=== PATIENT | female | born 1955 | race African-American/Black ===

== ENCOUNTER → 2016-06-16 | Outpatient (CLI) | payer OTHER | END | disposition home or self-care (01) | LOC: LAB 11:02 | DX: E03.9 Hypothyroidism, unspecified (principal) | CPT/HCPCS: 36415; 84439; 84443; 84481 ==

== ENCOUNTER → 2019-11-05 | Outpatient (CLI) | payer OTHER ==
[2019-11-05 14:25] LABS: Basophils # (auto) 0 10 ^3/uL (0-0.2); Basophils % (auto) 0.8 % (0.0-2.0); Eosinophils # (auto) 0.1 10 ^3/uL (0-0.8); Eosinophils % (auto) 2.5 % (0.0-7.0); Hematocrit 38.1 % (36.0-46.0); Hemoglobin 12.1 g/dL (12.2-16.2); Lymphocytes # (auto) 1.9 10 ^3/uL (0.4-5.4); Mean Corpuscular Hemoglobin 29.6 pg (28.0-32.0); Mean Corpuscular Hgb Conc. 31.9 g/dL (32.0-36.0); Mean Corpuscular Volume 92.7 fL (80.0-100.0); Monocytes # (auto) 0.3 10 ^3/uL (0-1.3); Monocytes % (auto) 6.6 % (0.0-12.0); Neutrophils # (auto) 2.1 10 ^3/uL (1.6-8.6); Neutrophils % (auto) 48.1 % (37.0-80.0); Nucleated Red Blood Cells % 0.1 %; Platelet Count (auto) 271 10^3/uL (140-450); Red Blood Cells 4.11 10^6/uL (4.0-5.20); Red Cell Distribution Width 13.1 % (11.8-14.3); White Blood Cell 4.5 10^3/uL (4.4-10.8)
[2019-11-05 14:27] LABS: Urine Bacteria FEW /hpf (None Seen); Urine Blood Negative /uL (Negative); Urine Mucus FEW (None Seen); Urine Specific Gravity 1.025 (1.001-1.035); Urine WBC <1 /hpf (0 - 5)
[2019-11-05 14:49] LABS: Potassium 4.1 mmol/L (3.5-5.1)
[2019-11-05 14:58] LABS: Albumin 3.9 g/dL (3.4-5.0); BUN/Creatinine Ratio 9.8; Bilirubin, Total 0.5 mg/dL (0.2-1.0); Calcium 9.4 mg/dL (8.5-10.1); Total Protein 7.6 g/dL (6.4-8.2)
== END | disposition home or self-care (01) ==
LOC: LAB 13:25
PROVIDERS: ATTEND Nurse Practitioner
DX: E78.5 Hyperlipidemia, unspecified (principal); I10 Essential (primary) hypertension; E03.9 Hypothyroidism, unspecified
CPT/HCPCS: 36415; 80053; 80061; 81001; 84443; 85025

== ENCOUNTER 2024-04-25 16:32 | Inpatient (IN) | payer MEDICARE, OTHER ==
[~2024-04-25] VITALS: Ht 172.7 cm; Wt 98.5 kg
--- NOTE | 2024-04-25 17:31 | ED.PDOC ---
History of Present Illness HPI Comments 68 y/o F, Hx of HLD, thyroid disease, diverticulitis, obesity, hernia repiar, and hysterectomy, presents with c/o generalized abdominal pain, today. Patient is a poor historian secondary to pain and was only able to comment on sudden and unprovoked onset of pain 2x hours prior to ED arrival, today, after being fine the day prior. She rates pain a "20/10" in severity and it being non-radiating. She states suspicion on possible spoiled food consumption and reports no additional relevant or pertinent Hx, such as travel or injuries. She denies having any nausea, vomiting, diarrhea, constipation, urinary symptoms, fever, chills, or other associated symptoms or modifiers at this time. Chief Complaint: Abdominal Pain Time Seen by MD: 17:20 Reviewed Notes: Nurses Notes, Medications, Allergies Allergies: Coded Allergies: NO KNOWN ALLERGIES (Unverified , 04/25/24) Information Source: Patient Mode of Arrival: Ambulatory Severity: Moderate Timing: Hours Duration: Since onset Prehospital treatment: None Past Medical History PAST MEDICAL HISTORY: High Lipids, Thyroid Past Medical History (Other): diverticulitis, obesity Surgical History: Hernia Repair, Hysterectomy OCCUP THERAPIST History: Denies all OCCUP THERAPIST Hx Family History Family History: Unknown Social History Smoker: Non-Smoker Alcohol: Denies ETOH Use Drugs: Denies Drug Use Lives In: Home Constitutional: denies: chills, diaphoresis, fatigue, fever, malaise, sweats, weakness, others EENTM: denies: blurred vision, double vision, ear bleeding, ear discharge, ear drainage, ear pain, ear ringing, eye pain, eye redness, hearing loss, mouth pain, mouth swelling, nasal discharge, nose bleeding, nose congestion, nose pain, photophobia, tearing, throat pain, throat swelling, voice changes, others Respiratory: denies: cough, hemoptysis, orthopnea, SOB at rest, shortness of breath, SOB with excertion, stridor, wheezing, others Cardiovascular: denies: chest pain, dizzy spells, diaphoresis, Dyspnea on exertion, edema, irregular heart beat, left arm pain, lightheadedness, palpitations, PND, syncope, others Gastrointestinal: reports: abdominal pain; denies: abdomen distended, blood streaked bowels, constipated, diarrhea, dysphagia, difficulty swallowing, hematemesis, melena, nausea, poor appetite, poor fluid intake, rectal bleeding, rectal pain, vomiting, others Genitourinary: denies: abnormal vagina bleeding, burning, dyspareunia, dysuria, flank pain, frequency, hematuria, incontinence, pain, , vagina discharge, urgency, others Neurological: denies: dizziness, fainting, headache, left sided numbness, left sided weakness, numbness, paresthesia, pre-existing deficit, right sided numbness, right sided weakness, seizure, speech problems, tingling, tremors, weakness, others Musculoskeletal: denies: back pain, gout, joint pain, joint swelling, muscle pain, muscle stiffness, neck pain, others Integumetry: denies: bruises, change in color, change in hair/nails, dryness, laceration, lesions, lumps, rash, wounds, others Allergic/Immunocompromised: denies: Difficulty Healing, Frequent Infections, Hives, Itching, others Hematologic/Lymphatic: denies: anemia, blood clots, easy bleeding, easy bruising, swollen glands, others Endocrine: denies: excessive hunger, excessive sweating, excessive thirst, excessive urination, flushing, intolerance to cold, intolerance to heat, unexplained weight gain, unexplained weight loss, others Psychiatric: denies: anxiety, bipolar disorder, depression, hopeless, panic disorder, schizophrenia, sleepless, suicidal, others All Other Systems: Reviewed and Negative Physical Exam General Appearance: Moderate Distress HEENT: Normal ENT Inspection, Pharynx Normal, TMs Normal Neck: Full Range of Motion, Non-Tender, Normal, Normal Inspection Respiratory: Chest Non-Tender, Lungs Clear, No Accessory Muscle Use, No Respiratory Distress, Normal Breath Sounds Cardiovascular: No Edema, No JVD, No Murmur, No Gallop, Normal Peripheral Pulses, Regular Rate/Rhythm Breast Exam: Deferred Gastrointestinal: Diffuse, No Organomegaly, No Pulsatile Mass, Normal Bowel Sounds, Soft, Tenderness Genitalia: Deferred Pelvic: Deferred Rectal: Deferred Extremities: No calf tenderness, Normal capillary refill, Normal inspection, Normal range of motion, Non-tender, No pedal edema Musculoskeletal : Apperance: Normal Neurologic: Alert, optometric coordinator II-XII nml as Tested, No Motor Deficits, Normal Affect, Normal Mood, No Sensory Deficits Cerebellar Function: Normal Reflexes: Normal Skin: Dry, Normal Color, Warm Lymphatic: No Adenopathy Was a procedure done? Was a procedure done?: No Differential Dx Considerations may include: diverticulitis, spoiled food, gastritis, gastroenteritis, appendicitis, cholecystitis, cholelithiasis, nephrolithiasis, pyelonephritis, cystitis X-Ray, Labs, Meds, VS Vital Signs Date Time Temp Pulse Resp B/P (MAP) Pulse Ox O2 Delivery O2 Flow Rate FiO2 04/25/24 17:04 61 04/25/24 17:02 97.5 66 20 140/71 (94) 100 Lab Test 04/25/24 17:38 Range/Units White Blood Count 9.7 4.4-10.8 10^3/uL Red Blood Count 4.61 4.0-5.20 10^6/uL Hemoglobin 14.0 12.2-16.2 g/dL Hematocrit 42.5 36.0-46.0 % Mean Corpuscular Volume 92.2 80.0-100.0 fL Mean Corpuscular Hemoglobin 30.4 28.0-32.0 pg Mean Corpuscular Hemoglobin Concent 32.9 32.0-36.0 g/dL Red Cell Distribution Width 13.4 11.8-14.3 % Platelet Count 326 140-450 10^3/uL Mean Platelet Volume 9.3 6.9-10.8 fL Neutrophils (%) (Auto) 68.6 37.0-80.0 % Lymphocytes (%) (Auto) 26.6 10.0-50.0 % Monocytes (%) (Auto) 3.7 0.0-12.0 % Eosinophils (%) (Auto) 0.7 0.0-7.0 % Basophils (%) (Auto) 0.4 0.0-2.0 % Neutrophils # (Auto) 6.6 1.6-8.6 10 ^3/uL Lymphocytes # (Auto) 2.6 0.4-5.4 10 ^3/uL Monocytes # (Auto) 0.4 0-1.3 10 ^3/uL Eosinophils # (Auto) 0.1 0-0.8 10 ^3/uL Basophils # (Auto) 0 0-0.2 10 ^3/uL Nucleated Red Blood Cells 0.1 % Sodium Level 140 136-145 mmol/L Potassium Level 3.7 3.5-5.1 mmol/L Chloride Level 105 98-107 mmol/L Carbon Dioxide Level 26 20-31 mmol/L Anion Gap 9 5-15 Blood Urea Nitrogen 14 9-23 mg/dL Creatinine 1.03 H 0.550-1.02 mg/dL Glomerular Filtration Rate Calc 60 >90 mL/min BUN/Creatinine Ratio 13.6 10.0-20.0 Serum Glucose 136 H 74-106 mg/dL Calcium Level 11.4 H 8.7-10.4 mg/dL Total Bilirubin 1.7 H 0.2-1.0 mg/dL Aspartate Amino Transferase (AST) 325 H 13-40 U/L Alanine Aminotransferase (ALT) 191 H 7-40 U/L Alkaline Phosphatase 116 46-116 U/L Total Protein 7.8 5.7-8.2 g/dL Albumin 4.8 3.2-4.8 g/dL Lipase 91 H 12-53 U/L PROCEDURE(s): ABPL - CT AB PEL WO CON-NO ORAL OR IV IMPRESSION: Minimal wall edema of the ascending colon. Correlate for mild colitis. Sigmoid diverticulosis without diverticulitis. The patient's CBC is within normal limits The chemistry panel shows a creatinine of 1.03 The bilirubin is 1.7 and the liver enzymes are elevated The patient's lipase is also elevated at 91 The patient was being admitted at this time. The patient was diagnosis is acute colitis and intractable abdominal pain The patient understands and agrees with the management. The patient is being placed on morphine for the pain and Zofran for the nausea The patient was also given Protonix 40 mg IV push The patient was being admitted at this time. Images Reviewed?: Images reviewed and evaluated by me Time of 1ST Reevaluation: 17:50 Reevaluation 1ST: Unchanged Time of 2ND Reevaluation: 19:37 Reevaluation 2ND: Improved Patient Education/Counseling: Diagnosis, Treatment, Prognosis Family Education/Counseling: No Family Present Departure 1 Departure Time of Disposition: 19:37 Impression: Primary Impression: Intractable abdominal pain Additional Impressions: Acute colitis Elevated liver enzymes Disposition: ADMITTED INPATIENT Admit to: Med Surg Condition: Fair Critical Care Note Critical Care Time?: No Stability Stability form required: Yes Unstable for transfer: ED Physician Assesment (Clinical assesment) Heart Score Heart Score: Heart Score Response (Comments) Value History N/A 0 EKG N/A 0 Age N/A 0 Risk Factors N/A 0 Troponin N/A 0 Total 0 I personally scribed for EDILBERTO YOON MD ([email or web address]) on 04/25/24 at 17:31. Electronically submitted by Rey Salazar ([email or web address]). I personally scribed for EDILBERTO YOON MD ([email or web address]) on 04/25/24 at 18:53. Anastasiia ctronically submitted by Rey Salazar ([email or web address]). EDILBERTO YOON MD Apr 25, 2024 17:31
[2024-04-25 18:09] LABS: Basophils # (auto) 0 10 ^3/uL (0-0.2); Basophils % (auto) 0.4 % (0.0-2.0); Eosinophils # (auto) 0.1 10 ^3/uL (0-0.8); Eosinophils % (auto) 0.7 % (0.0-7.0); Hematocrit 42.5 % (36.0-46.0); Lymphocytes # (auto) 2.6 10 ^3/uL (0.4-5.4); Lymphocytes % (auto) 26.6 % (10.0-50.0); Mean Corpuscular Hemoglobin 30.4 pg (28.0-32.0); Mean Corpuscular Hgb Conc. 32.9 g/dL (32.0-36.0); Mean Corpuscular Volume 92.2 fL (80.0-100.0); Monocytes # (auto) 0.4 10 ^3/uL (0-1.3); Monocytes % (auto) 3.7 % (0.0-12.0); Neutrophils # (auto) 6.6 10 ^3/uL (1.6-8.6); Neutrophils % (auto) 68.6 % (37.0-80.0); Nucleated Red Blood Cells % 0.1 %; Platelet Count (auto) 326 10^3/uL (140-450); Red Blood Cells 4.61 10^6/uL (4.0-5.20); Red Cell Distribution Width 13.4 % (11.8-14.3); White Blood Cell 9.7 10^3/uL (4.4-10.8)
[2024-04-25 18:25] LABS: Albumin 4.8 g/dL (3.2-4.8); Anion Gap 9 (5-15); BUN/Creatinine Ratio 13.6 (10.0-20.0); Blood Urea Nitrogen 14 mg/dL (9-23); Carbon Dioxide 26 mmol/L (20-31); Chloride 105 mmol/L (98-107); Potassium 3.7 mmol/L (3.5-5.1); Sodium 140 mmol/L (136-145)
--- NOTE | 2024-04-25 18:25 | DVH ---
Exam: CT CT AB PEL WO CON-NO ORAL OR IV History: pain Comparison Study: 12/20/2023 report only TECHNIQUE: Multidetector CT of the abdomen and pelvis without contrast. Axial, coronal and sagittal m ultiplanar reformats were obtained from the axial data set by the technologist. Radiation Dose Information: CT Dose: CTDI volume is 15.05 mGy. Dose-length product is 784.99 mGy*cm FINDINGS: Bibasilar atelectasis. Partially visualized heart is unremarkable. Significant distention of the gallbladder which is otherwise unremarkable. Mild hepatomegaly with no focal hepatic lesions. The spleen, pancreas and adrenal glands unremarkable. Kidneys, ureters and urinary bladder unremarkable. Uterus is not definitely visualized. Question hyst erectomy /uterine atrophy. A pessary is noted in place. Significant distention of the stomach filled with ingested material. Small bowel loops unremarkable. Appendix is unremarkable. Mild wall edema of the ascending colon. Sigmoid diverticulosis without dive rticulitis. The remainder of the large bowel is unremarkable. No evidence of intraperitoneal free air. No evidence of aortic aneurysm. No significant lymphadenopathy. Small fat containing right inguinal hernia. The soft tissues are unremarkable. No Destructive osseous lesions are noted. IMPRESSION: Minimal wall edema of the ascending colon. Correlate for mild colitis. Sigmoid diverticulosis without diverticulitis.
[2024-04-25 18:26] LABS: Total Protein 7.8 g/dL (5.7-8.2)
[2024-04-25 18:51] LABS: Alanine Aminotransferase 191 U/L (7-40); Alkaline Phosphatase 116 U/L (46-116); Aspartate Aminotransferase 325 U/L (13-40); Bilirubin, Total 1.7 mg/dL (0.2-1.0); Calcium 11.4 mg/dL (8.7-10.4); Glucose 136 mg/dL (74-106); Lipase 91 U/L (12-53)
[2024-04-25 20:30] VITALS: PULSE 92; RESP 16; O2SAT 99
[2024-04-25 20:30] LABS: Urine Bacteria FEW /hpf (None Seen); Urine Blood Negative /uL (Negative); Urine Clarity Clear (Clear); Urine Color Yellow (Yellow); Urine Mucus FEW (None Seen); Urine Protein, UAD Negative (Negative); Urine Specific Gravity 1.019 (1.001-1.035); Urine Squamous Epithelial Cell FEW /hpf (<5); Urine Urobilinogen 2 mg/dL (Negative); Urine WBC 2 /hpf (0 - 5); Urine pH 5.5 (5.0-9.0)
[2024-04-25] MEDS: MORPHINE SULFATE 4 MG/ML SYR/VIAL IV ONE (21:08)
[2024-04-25] MEDS: ONDANSETRON HCL 4 MG/2 ML VIAL IV ONE (21:08)
[2024-04-25] MEDS: SODIUM CHLORIDE 0.9% 500 ML IVB ONE (21:08)
--- NOTE | 2024-04-25 21:59 | DVHHPRES ---
History of Present Illness Resident Creating Document: MITALI SHORE RESIDENT History of Present Illness This is a 68-year-old female with past medical history of hypothyroidism, hiatal hernia, degenerative disc disease, hyperlipidemia presented to the ED with a chief complaint of severe epigastric pain since 3:00 p.m. prior to this admission. The patient stated that severe epigastric pain started all of a sudden which was sharp in nature 30/10, radiates to the back and also the upper chest without any aggravating factor but partially relieved after taking Tums and associated with nausea. She mentioned this is the 1st time she had this kind of pain and never had this before and denies chest pain, shortness of breath, dizziness, diaphoresis, dysuria, hematuria mass it contact any change in bowel movement. The patient has a history of hiatal hernia and an EGD done few weeks ago which revealed normal study. Past Medical History Hypothyroidism, hiatal hernia, degenerative disc disease, hyperlipidemia Past Surgical History Hysterectomy, feet surgery Family History Family history is significant for thyroid cancer Past Social History Lives with family Nonsmoker ,nonalcoholic and never tried any drugs Review of Systems Constitutional: No: Fever, Chills, Sweats, Weakness, Malaise, Other Eyes: No: Pain, Vision change, Conjunctivae inflammation, Eyelid inflammation, Other, Redness ENT: No: Ear pain, Ear discharge, Nose pain, Nose discharge, Nose congestion, Mouth pain, Mouth swelling, Throat pain, Throat swelling, Other Respiratory: No: Cough, Dry, Shortness of breath, SOB with excertion, Wheezing, Hemoptysis, Pleuritic Pain, Sputum, Wheezing, Other Cardiovascular: No: Chest Pain, Palpitations, Orthopnea, Paroxysmal Noc. Dyspnea, Edema, Lt Headedness, Other Gastrointestinal: Nausea, Abdominal Pain; No: Vomiting, Diarrhea, Constipation, Melena, Hematochezia, Other Genitourinary: No Dysuria, No Frequency, No Incontinence, No Hematuria, No Retention, No Other Musculoskeletal: No: other, neck pain, shoulder pain, arm pain, back pain, hand pain, leg pain, foot pain Skin: No: Rash, Lesions, Jaundice, Bruising, Other Neurological: No: Weakness, Numbness, Incoordination, Change in speech, Confusion, Seizures, Other Allergies: Coded Allergies: Penicillins (Verified Allergy, Severe, 04/26/24) Medications Current Medications Medications Dose Ordered Sig/Alcides Route Start Time Stop Time Status Last Admin Dose Admin Sodium Chloride 1,000 ml @ 100 mls/hr Q10H IV 04/25/24 22:00 UNV Ceftriaxone Sodium 50 ml @ 100 mls/hr DAILY IV 04/26/24 10:00 UNV Metronidazole 100 ml @ 100 mls/hr TID IV 04/25/24 22:00 UNV Pantoprazole Sodium 40 mg DAILY IV 04/26/24 10:00 UNV Exam Vital Signs Vital Signs Date Time Temp Pulse Resp B/P (MAP) Pulse Ox O2 Delivery O2 Flow Rate FiO2 04/25/24 21:08 92 16 133/71 04/25/24 20:30 98.1 99 98.1 Exam Physical examination: General Appearance: Alert, Oriented X3, Cooperative, No acute distress HEENT: Atraumatic, PERRLA, EOMI, Mucous membrane moist/pink Respiratory: Clear to auscultation, Normal air movement Cardiovascular: Regular rate, Normal S1, Normal S2, No murmurs, no chest wall tenderness Abdominal: Normal bowel sounds, Soft, No tenderness, No hepatospenomegaly, No masses Extremities: No clubbing, No cyanosis, No edema, Normal pulses, No tenderness/swelling Skin: No rashes, No breakdown, No significant lesion Neuro: Normal gait, Normal speech, Strength at 5/5 X4 ext, Normal tone, Sensation intact, grossly intact cranial nerves. Psych/Mental Status: Mental status NL, Mood NL Labs/Xrays Labs Test 04/25/24 19:22 04/25/24 17:38 Range/Units Urine Color Yellow Yellow Urine Clarity Clear Clear Urine pH 5.5 5.0-9.0 Urine Specific [place] 1.019 1.001-1.035 Urine Protein Negative Negative Urine Ketones Negative Negative Urine Blood Negative Negative /uL Urine Nitrite Negative Negative Urine Bilirubin Negative Negative Urine Urobilinogen 2 H Negative mg/dL Urine Leukocyte Esterase Negative Negative /uL Urine RBC 1 0 - 4 /hpf Urine WBC 2 0 - 5 /hpf Urine Squamous Epithelial Cells Few <5 /hpf Urine Bacteria Few H None Seen /hpf Urine Mucus Few None Seen Urine Glucose Normal Normal mg/dL White Blood Count 9.7 4.4-10.8 10^3/uL Red Blood Count 4.61 4.0-5.20 10^6/uL Hemoglobin 14.0 12.2-16.2 g/dL Hematocrit 42.5 36.0-46.0 % Mean Corpuscular Volume 92.2 80.0-100.0 fL Mean Corpuscular Hemoglobin 30.4 28.0-32.0 pg Mean Corpuscular Hemoglobin Concent 32.9 32.0-36.0 g/dL Red Cell Distribution Width 13.4 11.8-14.3 % Platelet Count 326 140-450 10^3/uL Mean Platelet Volume 9.3 6.9-10.8 fL Neutrophils (%) (Auto) 68.6 37.0-80.0 % Lymphocytes (%) (Auto) 26.6 10.0-50.0 % Monocytes (%) (Auto) 3.7 0.0-12.0 % Eosinophils (%) (Auto) 0.7 0.0-7.0 % Basophils (%) (Auto) 0.4 0.0-2.0 % Neutrophils # (Auto) 6.6 1.6-8.6 10 ^3/uL Lymphocytes # (Auto) 2.6 0.4-5.4 10 ^3/uL Monocytes # (Auto) 0.4 0-1.3 10 ^3/uL Eosinophils # (Auto) 0.1 0-0.8 10 ^3/uL Basophils # (Auto) 0 0-0.2 10 ^3/uL Nucleated Red Blood Cells 0.1 % Sodium Level 140 136-145 mmol/L Potassium Level 3.7 3.5-5.1 mmol/L Chloride Level 105 98-107 mmol/L Carbon Dioxide Level 26 20-31 mmol/L Anion Gap 9 5-15 Blood Urea Nitrogen 14 9-23 mg/dL Creatinine 1.03 H 0.550-1.02 mg/dL Glomerular Filtration Rate Calc 60 >90 mL/min BUN/Creatinine Ratio 13.6 10.0-20.0 Serum Glucose 136 H 74-106 mg/dL Calcium Level 11.4 H 8.7-10.4 mg/dL Total Bilirubin 1.7 H 0.2-1.0 mg/dL Aspartate Amino Transferase (AST) 325 H 13-40 U/L Alanine Aminotransferase (ALT) 191 H 7-40 U/L Alkaline Phosphatase 116 46-116 U/L Total Protein 7.8 5.7-8.2 g/dL Albumin 4.8 3.2-4.8 g/dL Lipase 91 H 12-53 U/L Assessment/Plan Assessment/Plan Assessment and Plan: # Acute epigastric pain, rule out pancreatitis/ gastritis - Mildly elevated lipase - CT abdomen pelvis revealed unremarkable pancreas and minimal wall edema of the ascending colon which correlate for mild colitis. - U/S of the GB demonstrated no cholelithiasis - Ordered lipid panel - Clear liquid diet. - IV normal saline 1 L bolus followed by IV normal saline at 100 mL/hour - IV Protonix 40 mg daily # Rule out acute cholecystitis - U/S of the GB revealed mild wall thickening of the gallbladder wall without any cholelithiasis - Ordered HIDA scan # Abdominal pain likely due to colitis - CT abdomen pelvis revealed unremarkable pancreas and minimal wall edema of the ascending colon which correlate for mild colitis. - IV normal saline at 100 mL/hour - IV ceftriaxone 1 g daily and IV metronidazole 500 mg t.i.d. # Hypercalcemia likely due to dehydration - IV normal saline at 100 mL/hour - Monitor BMP # Hyperbilirubinemia with transaminitis likely due to alcoholic hepatitis - Ordered serum alcohol level, coagulation studies and comprehensive hepatitis panel - Monitor CMP # PUD prophylaxis - Protonix 40 mg IV daily # DVT prophylaxis - Lovenox 40 mg sc daily Goal of care discussed with the patient for more than 23 minutes full code Plan discussed with Dr. Macdonald Plan discussed with: Patient, Other My Orders Orders - MITALI SHORE RESIDENT Procedure Category Date Status Time Admit ADMIT 04/25/24 Transmitted 21:46 Sodium Chloride 0.9% PHA 04/25/24 Logged 22:00 Sodium Chloride 0.9% PHA 04/25/24 Logged 22:00 Ceftriaxone 1gm/50ml PHA 04/25/24 Logged D5w (Rocephin) 22:00 Ceftriaxone 1gm/50ml PHA 04/26/24 Logged D5w (Rocephin) 10:00 Metronidazole PHA 04/25/24 Logged 500mg/100ml (Flagyl 22:00 Pantoprazole PHA 04/26/24 Logged (Protonix) 10:00 Drug Screen LAB 04/25/24 In Process 21:54 PTPTT LAB 04/25/24 Logged 21:54 Comprehensive LAB 04/25/24 Logged Hepatitis Panel 21:54 Thyroid Stimulating LAB 04/25/24 Logged Hormone 21:54 Abdomen Complete US 04/25/24 Logged Sonogram 21:55 Date of Service: Apr 25, 2024 Billing Provider: TRINI MACDONALD MD Common Visit Codes: 62259-SOXGOLY INP/OBS CARE (HIGH) Secondary Visit Codes: 44257-VOBJOCCC CARE PLAN 30 MINUTES RUKHSANACHRISTIE JANGRA RESIDENT Apr 25, 2024 21:59 TRINI MACDONALD MD Apr 26, 2024 08:57
[2024-04-25 22:30] LABS: Triglycerides 68 mg/dL (< 150)
[2024-04-25 22:30] LABS: Amphetamine Screen, Urine Neg (NEGATIVE); Barbiturate Scree,Urine Neg (NEGATIVE); Benzodiazephine Screen, Urine Neg (NEGATIVE); Cocaine Screen, Urine Neg (NEGATIVE); Opiate Scree,Urine Neg (NEGATIVE)
[2024-04-25 22:31] LABS: Cannabinoid Screen, Urine Neg (NEGATIVE); Phencyclidine Screen, Urine Neg (NEGATIVE)
[2024-04-25 22:31] LABS: LDL Cholesterol 99 mg/dL (< 100)
[2024-04-25 22:32] LABS: Cholesterol 184 mg/dL (< 200); HDL Cholesterol 66 mg/dL (40-59)
[2024-04-25 22:33] LABS: INR 1.05 (0.9-1.15); Partial Thromboplastin Time 24.8 SEC (24.5-34.5); Prothrombin Time 11.1 sec (9.3-11.8)
[2024-04-25 22:59] VITALS: PULSE 92; RESP 18; O2SAT 95
[2024-04-25] MEDS: metroNIDAZOLE 500MG/100ML 100 ML IV SCH (23:13)
[2024-04-25] MEDS: cefTRIAXone 1GM/50ML D5W 50 ML IV ONE (23:13)
[2024-04-25] MEDS: SODIUM CHLORIDE 0.9% 1,000 ML IV SCH (23:14)
[2024-04-25] MEDS ORDERED: [UNRECOGNIZED DRUG - CODE] VG (23:15)
[2024-04-25] MEDS ORDERED: LEVO88TA2 PO (23:15)
[2024-04-25] MEDS ORDERED: LIDO5DIS21 TOP (23:15)
[2024-04-25] MEDS ORDERED: ACYC400T16 PO (23:15)
[2024-04-25] MEDS: SODIUM CHLORIDE 0.9% 1,000 ML IV ONE (23:15)
--- NOTE | 2024-04-25 23:29 | DVH ---
ABDOMINAL ULTRASOUND CLINICAL HISTORY: Rule out cholelithiasis abdominal pain TECHNIQUE: Multiple grayscale and color Doppler ultrasound images were obtained of the abdomen. WID: COMPARISON: CT abdomen and pelvis from same day FINDINGS: Liver and Biliary System: Homogeneous echotexture, mildly enlarged measuring 21 cm. No focal hepat ic observations. No intrahepatic bile duct dilatation. The common duct measures 0.6 cm at the kusum hepatis. The gallbladder is upper limits of normal caliber with mild wall thickening measuring 3. 7 mm. Sonographic serrano's sign is negative. There is no cholelithiasis.. Pancreas: Visualized portions are unremarkable. Kidneys: The right kidney is 9.2 cm. No hydronephrosis, increased echogenicity, shadowing stone, or focal lesion. IMPRESSION: 1. Upper limits of normal caliber gallbladder with mild wall thickening. DDX includes acute or chroni c cholecystitis, underlying hepatic dysfunction, or volume overload. 2. Mild hepatomegaly.
[2024-04-26] VITALS (7 sets, daily range): BP systolic 108–129; BP diastolic 42–67; PULSE 74–108; RESP 15–18; TEMP 98–100.4; O2SAT 87–98
[2024-04-26] MEDS: ACETAMINOPHEN 500 MG TAB or CAP PO ONE (00:19)
[2024-04-26] MEDS: ACETAMINOPHEN 325 MG TAB PO PRN (05:51)
--- NOTE | 2024-04-26 08:53 | DVHPNRES ---
Progress Note Date Seen: Apr 26, 2024 Resident Creating Document: DAMARI ARRIETA RESIDENT Medical Necessity Reason Pt with a Central, PICC or Fol: No Subjective Review of Systems Patient is a 68-year-old female with past medical history of Reena's hypothyroidism, hiatal hernia, dyslipidemia, liver inflammation? Who came in due to intractable abdominal pain. According to the patient, this morning she had turkey sausage and toast for breakfast, however, shortly after around 1:00 p.m. she started having stomach pain subsequently she had some tea and kevin amber however pain continued to worsen progressively. Patient notes that she took 3-4 Tums however they did not health. Around 3:00 p.m. she says her pain became unbearable, 10/10 in intensity, constant, sharp in nature and radiating across the abdomen. She denies having similar symptoms in the past. She notes that in the ER she felt a wave over her stomach in the pain slowly started subsiding. Past surgical history: Hysterectomy Home medications: Levothyroxine 80 mcg, estrogen vaginal ring, acyclovir for shingles Past Hospitalization: Denies Social & Personal history: Patient lives with . No smoking, no alcohol, no drugs. Allergies: Penicillin Patient seen and examined at bedside. Patient is alert and oriented to time, place person and responding to all questions. General: Fatigue Eyes: No Pain, No Vision change, No Conjunctivae inflammation, No Eyelid inflammation, No Other, No Redness ENT: No Ear pain, No Ear discharge, No Nose pain, No Nose discharge, No Nose congestion, No Mouth pain, No Mouth swelling, No Throat pain, No Throat swelling, No Other Cardiovascular: No Chest Pain, No Palpitations, No Orthopnea, No Paroxysmal No Dyspnea, No Edema, No Lt Headedness, No Other Respiratory: No Cough, No Dry, No Shortness of breath, No SOB with exertion, No Wheezing, No Hemoptysis, No Pleuritic Pain, No Sputum, No Other Gastrointestinal: No Nausea, No Vomiting, No Abdominal Pain, No Diarrhea, No Constipation, No Melena, No Hematochezia, No Other Genitourinary: No Dysuria, No Frequency, No Incontinence, No Hematuria, No Retention, No Other Musculoskeletal: No other, No neck pain, No shoulder pain, No arm pain, No back pain, No hand pain, No leg pain, No foot pain Skin: No Rash, No Lesions, No Jaundice, No Bruising, No Other Psychiatric: Reports feeling more depressed than usual in the last 2 weeks, denies any suicidal ideation or intent Objective vital signs Vital Sign Date Time Temp Pulse Resp B/P (MAP) Pulse Ox O2 Delivery O2 Flow Rate FiO2 04/26/24 08:00 78 18 96 Room Air* 0 21 04/26/24 06:51 99.0 04/26/24 05:00 114/59 (77) Total Intake and Output 04/25/24 04/25/24 04/26/24 15:00 23:00 07:00 Intake Total 450 ml Balance 450 ml medications Current Medications Medications Dose Ordered Sig/Alcides Route Start Time Stop Time Status Last Admin Dose Admin Sodium Chloride 1,000 ml @ 100 mls/hr Q10H IV 04/25/24 22:00 04/26/24 08:04 100 MLS/HR Ceftriaxone Sodium 50 ml @ 100 mls/hr DAILY@2200 IV 04/26/24 22:00 Metronidazole 100 ml @ 100 mls/hr TID IV 04/25/24 22:00 04/26/24 05:16 100 MLS/HR Pantoprazole Sodium 40 mg DAILY IV 04/26/24 10:00 Enoxaparin Sodium 40 mg DAILY SC 04/26/24 10:00 Acetaminophen 650 mg Q6HP PRN PO 04/26/24 05:45 04/26/24 05:51 650 MG Examination General Appearance: Cooperative. Well developed. Well nourished. NAD Head Exam: Normal inspection Neck Exam: Normal inspection. Non-tender. Normal alignment Pulmonary/Respiratory: Chest non-tender. Clear bilateral breath sounds, no crackles, no wheezing. Cardiovascular/Chest: Regular rate and rhythm. No murmurs. No JVD. Peripheral Pulses: 2+ Radial (R). 2+ Radial (L). 2+ Pedal (R). 2+ Pedal (L) Abdominal Exam: Normal bowel sounds. Soft. normal abdomen, no visible veins, m ild tenderness to palpation, some guarding noted No hepatospenomegaly. No masses Ankle Exam: Negative ankle edema Lower extremities: Negative lower extremity edema Neuro/Mental Status: A&O x4. Coherent. Thoughts/Psych: Normal thought pattern. Appropriate mood and affect. Good judgement and insight Skin Exam: Normal inspection. Normal color. Warm. Dry laboratory and microbiology Laboratory Tests 04/25/24 17:38 Test 04/25/24 17:38 Range/Units Serum Glucose 136 H 74-106 mg/dL Labs and/or images reviewed: Labs reviewed by me, Image(s) reviewed by me Problem List/Assessment/Plan Problem List/Assessment/Plan Questionable acute cholecystitis Less likely to be acute pancreatitis Sigmoid diverticulosis without diverticulitis - CT abdomen pelvis: Minimal wall edema of the ascending colon. Correlate for mild colitis. Sigmoid diverticulosis without diverticulitis - gallbladder ultrasound: Upper limits of normal caliber gallbladder with mild wall thickening. Differentials include acute or chronic cholecystitis, underlying hepatic dysfunction, or volume overload. Mild hepatomegaly. - HIDA scan: Gallbladder is not visualized up to 4 hours after injection. Findings may be seen with acute cholecystitis in the appropriate clinical setting. No excretion of radiopharmaceutical into the small bowel is seen. May be due to hepatocellular disease given no biliary duct dilation seen on prior ultrasound or CT. Correlate with clinical findings. - surgery on board - IV NS at 100 mL/hour - IV ceftriaxone, IV metronidazole Hypothyroidism - levothyroxine 75 mcg Mild transaminitis - ordered acute and comprehensive hepatitis panel PUD prophylaxis: protonix 40mg DVT prophylaxis: Levonox 40mg Goals of care: Full code, discussed for >16 minutes on 04/26/24 Plan discussed with patient Plan discussed with Dr. Beauchamp Plan discussed with: Patient, Daughter, Other (RN) Date of Service: Apr 26, 2024 Billing Provider: SHELL BEAUCHAMP MD Common Visit Codes: [id number] INP/OBS CARE(HIGH) DAMARI ARRIETA Apr 26, 2024 08:53 SHELL BEAUCHAMP MD Apr 29, 2024 08:31
[2024-04-26] MEDS: ENOXAPARIN SOD 40 MG/0.4 ML SYRINGE SC SCH (10:00)
[2024-04-26] MEDS: PANTOPRAZOLE 40 MG/10 ML VIAL INJ IV SCH (10:42)
--- NOTE | 2024-04-26 11:04 | DVH ---
EXAM: XY CHEST XRAY 1 VIEW Indication: chest pain Technique: Single frontal view of the chest was obtained Comparison: None FINDINGS: Lines and Tubes: None Lungs: No focal consolidation. Pleura: No effusion. No pneumothorax. Cardiomediastinal contours: Unremarkable Bones: No acute osseous abnormality. IMPRESSION: No acute cardiopulmonary disease.
--- NOTE | 2024-04-26 12:05 | DVH ---
CLINICAL INFORMATION: 68 years old, Female; Acute epigstric pain. TECHNIQUE: 4.2 mCi of Choletec were administered intravenously. Images of the upper abdomen were ob tained at 1 minute intervals up to a total time of 60 minutes. Delayed images were obtained at 4:00 a .m. In the anterior and right lateral projections. COMPARISON: Ultrasound dated 04/25/[address] dated 04/25/2024. FINDINGS: The gallbladder is not visualized on initial images obtained up to 60 minutes or on the de layed images obtained at 4:00 a.m.. No excretion of radiopharmaceutical into the small bowel is demon strated. IMPRESSION: 1. Gallbladder is not visualized up to 4 hours after injection. Findings may be seen with acute chol ecystitis in the appropriate clinical setting. 2. No excretion of radiopharmaceutical into the small bowel is seen. May be due to hepatocellular dis ease given no biliary ductal dilatation seen on prior ultrasound or CT. Correlate with clinical findi ngs.
--- NOTE | 2024-04-26 12:34 | DVHINCON2 ---
Date of service: Apr 26, 2024 Family History: FH: cirrhosis G8 FATHER FH: heart disease G8 MOTHER Polio G8 MOTHER Allergies: Coded Allergies: Penicillins (Verified Allergy, Severe, 04/26/24) Home Meds Reported Medications Lidocaine (LIDODERM 5% TOPICAL PATCH) 1 Patch Ph, 1 PATCH TOP PRN for PAIN SCALE 7 THRU 10, PATCH 04/25/24 Acyclovir (ZOVIRAX TABLET) 400 Mg Tb, 800 MG PO PRN for SHINGLES/HERPES, TAB 04/25/24 Estradiol Acetate (Femring) 0.05 Mg/24 Hr Mis, VG 04/25/24 Levothyroxine Sodium (Synthroid) 88 Mcg Tab, 1 TAB PO DAILY 04/25/24 Current Medications Current Medications Medications (Trade) Dose Ordered Sig/Alcides Route PRN Reason Start Time Stop Time Status Last Admin Sodium Chloride 1,000 ml @ 100 mls/hr Q10H IV 04/25/24 22:00 04/26/24 08:04 Ceftriaxone Sodium 50 ml @ 100 mls/hr DAILY@2200 IV 04/26/24 22:00 Metronidazole 100 ml @ 100 mls/hr TID IV 04/25/24 22:00 04/26/24 05:16 Pantoprazole Sodium (Protonix) 40 mg DAILY IV 04/26/24 10:00 04/26/24 10:42 Enoxaparin Sodium (Lovenox) 40 mg DAILY SC 04/26/24 10:00 Acetaminophen (Tylenol Tablet) 650 mg Q6HP PRN PO PAIN SCALE 1-3 OR TEMP>100.4 04/26/24 05:45 04/26/24 05:51 Vital Signs Vital Signs Date Time Temp Pulse Resp B/P (MAP) Pulse Ox O2 Delivery O2 Flow Rate FiO2 04/26/24 08:00 78 18 96 Room Air* 0 21 04/26/24 06:51 99.0 04/26/24 05:00 114/59 (77) Labs/Diagnostic Data Labs Test 04/26/24 02:21 04/25/24 22:08 04/25/24 19:22 04/25/24 17:38 Range/Units Plasma/Serum Blood Alcohol < 3.0 <10 mg/dL Prothrombin Time 11.1 9.3-11.8 sec Prothrombin Time INR 1.05 0.9-1.15 Activated Partial Thromboplast Time 24.8 24.5-34.5 SEC Hemoglobin A1c 5.2 <5.7 % A1C Triglycerides Level 68 < 150 mg/dL Cholesterol Level 184 < 200 mg/dL LDL Cholesterol 99 < 100 mg/dL HDL Cholesterol 66 H 40-59 mg/dL Thyroid Stimulating Hormone (TSH) 0.81 0.55-4.78 uIU/mL Urine Color Yellow Yellow Urine Clarity Clear Clear Urine pH 5.5 5.0-9.0 Urine Specific [place] 1.019 1.001-1.035 Urine Protein Negative Negative Urine Ketones Negative Negative Urine Blood Negative Negative /uL Urine Nitrite Negative Negative Urine Bilirubin Negative Negative Urine Urobilinogen 2 H Negative mg/dL Urine Leukocyte Esterase Negative Negative /uL Urine RBC 1 0 - 4 /hpf Urine WBC 2 0 - 5 /hpf Urine Squamous Epithelial Cells Few <5 /hpf Urine Bacteria Few H None Seen /hpf Urine Mucus Few None Seen Urine Glucose Normal Normal mg/dL Urine Opiates Screen Neg NEGATIVE Urine Fentanyl Screen Neg NEGATIVE Urine Barbiturates Screen Neg NEGATIVE Urine Phencyclidine Screen Neg NEGATIVE Urine Amphetamines Screen Neg NEGATIVE Urine Benzodiazepines Screen Neg NEGATIVE Urine Cocaine Screen Neg NEGATIVE Urine Cannabinoids Screen Neg NEGATIVE White Blood Count 9.7 4.4-10.8 10^3/uL Red Blood Count 4.61 4.0-5.20 10^6/uL Hemoglobin 14.0 12.2-16.2 g/dL Hematocrit 42.5 36.0-46.0 % Mean Corpuscular Volume 92.2 80.0-100.0 fL Mean Corpuscular Hemoglobin 30.4 28.0-32.0 pg Mean Corpuscular Hemoglobin Concent 32.9 32.0-36.0 g/dL Red Cell Distribution Width 13.4 11.8-14.3 % Platelet Count 326 140-450 10^3/uL Mean Platelet Volume 9.3 6.9-10.8 fL Neutrophils (%) (Auto) 68.6 37.0-80.0 % Lymphocytes (%) (Auto) 26.6 10.0-50.0 % Monocytes (%) (Auto) 3.7 0.0-12.0 % Eosinophils (%) (Auto) 0.7 0.0-7.0 % Basophils (%) (Auto) 0.4 0.0-2.0 % Neutrophils # (Auto) 6.6 1.6-8.6 10 ^3/uL Lymphocytes # (Auto) 2.6 0.4-5.4 10 ^3/uL Monocytes # (Auto) 0.4 0-1.3 10 ^3/uL Eosinophils # (Auto) 0.1 0-0.8 10 ^3/uL Basophils # (Auto) 0 0-0.2 10 ^3/uL Nucleated Red Blood Cells 0.1 % Sodium Level 140 136-145 mmol/L Potassium Level 3.7 3.5-5.1 mmol/L Chloride Level 105 98-107 mmol/L Carbon Dioxide Level 26 20-31 mmol/L Anion Gap 9 5-15 Blood Urea Nitrogen 14 9-23 mg/dL Creatinine 1.03 H 0.550-1.02 mg/dL Glomerular Filtration Rate Calc 60 >90 mL/min BUN/Creatinine Ratio 13.6 10.0-20.0 Serum Glucose 136 H 74-106 mg/dL Calcium Level 11.4 H 8.7-10.4 mg/dL Total Bilirubin 1.7 H 0.2-1.0 mg/dL Aspartate Amino Transferase (AST) 325 H 13-40 U/L Alanine Aminotransferase (ALT) 191 H 7-40 U/L Alkaline Phosphatase 116 46-116 U/L Total Protein 7.8 5.7-8.2 g/dL Albumin 4.8 3.2-4.8 g/dL Lipase 91 H 12-53 U/L Assessment 04/26/24 patient admitted with excruciating right upper quadrant and epigasgtric abdominal pain which is now resolved and she has no tenderness, although the HIDA scan indicates non visualization of her GB, this is most likely due to hepatocellular disease, or she may have passed a small gallstone (alk phosphatase is normal, ) either way there is no indication for surgical intervention at this time. she can have po intake and if need be to return to see me as outpatient Plan discussed with: Patient BEBETO CARVALHO MD Apr 26, 2024 12:34
[2024-04-26] MEDS: cefTRIAXone 1GM/50ML D5W 50 ML IV SCH (21:03)
[2024-04-27 01:00] VITALS: BP 117/54; PULSE 85; RESP 18; TEMP 99.8; O2SAT 86
[2024-04-27 05:00] VITALS: BP 128/63; PULSE 84; RESP 17; TEMP 98.7; O2SAT 88
[2024-04-27] MEDS: LEVOTHYROXINE SODIUM 25 MCG TAB PO SCH (05:34)
[2024-04-27 06:28] LABS: Calcium 9.7 mg/dL (8.7-10.4); Potassium 3.5 mmol/L (3.5-5.1); Sodium 140 mmol/L (136-145)
[2024-04-27 06:29] LABS: Anion Gap 8 (5-15); Carbon Dioxide 25 mmol/L (20-31)
[2024-04-27 06:34] LABS: BUN/Creatinine Ratio 9.4 (10.0-20.0); Blood Urea Nitrogen 10 mg/dL (9-23); Glucose 91 mg/dL (74-106)
[2024-04-27 06:51] LABS: Basophils # (auto) 0 10 ^3/uL (0-0.2); Basophils % (auto) 0.3 % (0.0-2.0); Eosinophils # (auto) 0.1 10 ^3/uL (0-0.8); Eosinophils % (auto) 0.8 % (0.0-7.0); Hematocrit 34.8 % (36.0-46.0); Hemoglobin 11.4 g/dL (12.2-16.2); Lymphocytes # (auto) 0.9 10 ^3/uL (0.4-5.4); Mean Corpuscular Hemoglobin 30.5 pg (28.0-32.0); Mean Corpuscular Hgb Conc. 32.8 g/dL (32.0-36.0); Monocytes # (auto) 0.4 10 ^3/uL (0-1.3); Monocytes % (auto) 5.3 % (0.0-12.0); Neutrophils # (auto) 6.4 10 ^3/uL (1.6-8.6); Neutrophils % (auto) 81.6 % (37.0-80.0); Nucleated Red Blood Cells % 0.2 %; Platelet Count (auto) 199 10^3/uL (140-450); Red Blood Cells 3.74 10^6/uL (4.0-5.20); Red Cell Distribution Width 13.6 % (11.8-14.3); White Blood Cell 7.8 10^3/uL (4.4-10.8)
[2024-04-27 08:48] LABS: Chloride 107 mmol/L (98-107)
[2024-04-27 09:00] VITALS: BP 126/45; PULSE 89; RESP 17; TEMP 99.1; O2SAT 90
[2024-04-27] MEDS ORDERED: CIPR-173 PO (09:20)
[2024-04-27] MEDS ORDERED: MET500T PO (09:20)
[2024-04-27 11:49] VITALS: BP 126/45; PULSE 89; RESP 17; TEMP 37.3; O2SAT 90
--- NOTE | 2024-04-27 12:06 | DVHDSRES ---
Discharge Summary Date of Admission Resident Creating Document: DAMARI ARRIETA RESIDENT Apr 25, 2024 at 21:46 Date of Discharge: Apr 27, 2024 Admitting Diagnosis Acute intractable abdominal pain Labs/Diagnostic Data: Laboratory Results Test 04/27/24 05:55 04/26/24 21:40 04/26/24 02:21 04/25/24 22:08 White Blood Count 7.8 10^3/uL (4.4-10.8) Red Blood Count 3.74 10^6/uL (4.0-5.20) Hemoglobin 11.4 g/dL (12.2-16.2) Hematocrit 34.8 % (36.0-46.0) Mean Corpuscular Volume 93.0 fL (80.0-100.0) Mean Corpuscular Hemoglobin 30.5 pg (28.0-32.0) Mean Corpuscular Hemoglobin Concent 32.8 g/dL (32.0-36.0) Red Cell Distribution Width 13.6 % (11.8-14.3) Platelet Count 199 10^3/uL (140-450) Mean Platelet Volume 9.1 fL (6.9-10.8) Neutrophils (%) (Auto) 81.6 % (37.0-80.0) Lymphocytes (%) (Auto) 12.0 % (10.0-50.0) Monocytes (%) (Auto) 5.3 % (0.0-12.0) Eosinophils (%) (Auto) 0.8 % (0.0-7.0) Basophils (%) (Auto) 0.3 % (0.0-2.0) Neutrophils # (Auto) 6.4 10 ^3/uL (1.6-8.6) Lymphocytes # (Auto) 0.9 10 ^3/uL (0.4-5.4) Monocytes # (Auto) 0.4 10 ^3/uL (0-1.3) Eosinophils # (Auto) 0.1 10 ^3/uL (0-0.8) Basophils # (Auto) 0 10 ^3/uL (0-0.2) Nucleated Red Blood Cells 0.2 % Sodium Level 140 mmol/L (136-145) Potassium Level 3.5 mmol/L (3.5-5.1) Chloride Level 107 mmol/L (98-107) Carbon Dioxide Level 25 mmol/L (20-31) Anion Gap 8 (5-15) Blood Urea Nitrogen 10 mg/dL (9-23) Creatinine 1.06 mg/dL (0.550-1.02) Glomerular Filtration Rate Calc 58 mL/min (>90) BUN/Creatinine Ratio 9.4 (10.0-20.0) Serum Glucose 91 mg/dL (74-106) Calcium Level 9.7 mg/dL (8.7-10.4) Lipase 48 U/L (12-53) Plasma/Serum Blood Alcohol < 3.0 mg/dL (<10) Prothrombin Time 11.1 sec (9.3-11.8) Prothrombin Time INR 1.05 (0.9-1.15) Activated Partial Thromboplast Time 24.8 SEC (24.5-34.5) Hemoglobin A1c 5.2 % A1C (<5.7) Triglycerides Level 68 mg/dL (< 150) Cholesterol Level 184 mg/dL (< 200) LDL Cholesterol 99 mg/dL (< 100) HDL Cholesterol 66 mg/dL (40-59) Thyroid Stimulating Hormone (TSH) 0.81 uIU/mL (0.55-4.78) Test 04/25/24 19:22 04/25/24 17:38 Urine Color Yellow (Yellow) Urine Clarity Clear (Clear) Urine pH 5.5 (5.0-9.0) Urine Specific [place] 1.019 (1.001-1.035) Urine Protein Negative (Negative) Urine Ketones Negative (Negative) Urine Blood Negative /uL (Negative) Urine Nitrite Negative (Negative) Urine Bilirubin Negative (Negative) Urine Urobilinogen 2 mg/dL (Negative) Urine Leukocyte Esterase Negative /uL (Negative) Urine RBC 1 /hpf (0 - 4) Urine WBC 2 /hpf (0 - 5) Urine Squamous Epithelial Cells Few /hpf (<5) Urine Bacteria Few /hpf (None Seen) Urine Mucus Few (None Seen) Urine Glucose Normal mg/dL (Normal) Urine Opiates Screen Neg (NEGATIVE) Urine Fentanyl Screen Neg (NEGATIVE) Urine Barbiturates Screen Neg (NEGATIVE) Urine Phencyclidine Screen Neg (NEGATIVE) Urine Amphetamines Screen Neg (NEGATIVE) Urine Benzodiazepines Screen Neg (NEGATIVE) Urine Cocaine Screen Neg (NEGATIVE) Urine Cannabinoids Screen Neg (NEGATIVE) Total Bilirubin 1.7 mg/dL (0.2-1.0) Aspartate Amino Transferase (AST) 325 U/L (13-40) Alanine Aminotransferase (ALT) 191 U/L (7-40) Alkaline Phosphatase 116 U/L (46-116) Total Protein 7.8 g/dL (5.7-8.2) Albumin 4.8 g/dL (3.2-4.8) Other Laboratory Tests 04/27/24 05:55 Brief Hx & Hospital Course: Patient is a 68-year-old female with past medical history of Reena's hypothyroidism, hiatal hernia, dyslipidemia, liver inflammation? Who came in due to intractable abdominal pain. According to the patient, this morning she had turkey sausage and toast for breakfast, however, shortly after around 1:00 p.m. she started having stomach pain subsequently she had some tea and kevin amber however pain continued to worsen progressively. Patient notes that she took 3-4 Tums however they did not health. Around 3:00 p.m. she says her pain became unbearable, 10/10 in intensity, constant, sharp in nature and radiating across the abdomen. She denies having similar symptoms in the past. She notes that in the ER she felt a wave over her stomach in the pain slowly started subsiding. Hospital course: CT abdomen pelvis showed minimal wall edema of the ascending colon. Correlate for mild colitis. Sigmoid diverticulosis without diverticulitis. Gallbladder ultrasound was performed which showed upper limits of normal caliber gallbladder with mild wall thickening. Differentials include acute or chronic cholecystitis, underlying hepatic dysfunction, or volume overload. Mild hepatomegaly. It was decided to perform a HIDA scan which showed that the gallbladder was not visualized up to 4 hours after injection. Findings may be seen with acute cholecystitis in the appropriate clinical setting. No excretion of radiopharmaceutical into the small bowel is seen. May be due to hepatocellular disease given no biliary duct dilation seen on prior ultrasound or CT. Surgery was consulted, patient was continued on IV NS at 100 cc/hour, IV ceftriaxone and IV metronidazole. Home medication levothyroxine 75 mcg was also continued. Nonvisualization of gallbladder on the HIDA scan likely due to hepatocellular disease or she may have passed a small gallstone (although alkaline phosphatase is normal). No indication for surgical intervention was identified at present. On the day of discharge, patient appeared well had stable vital signs, denied any abdominal pain or abdominal tenderness to palpation. He was prescribed ciprofloxacin 500 mg 2 times a day for 6 days and metronidazole 500 mg t.i.d. for 60s. Detailed discussion was held with patient and her daughter at bedside were all questions were answered and verbalized concerns were addressed. Her hospital course was uncomplicated. General Appearance: Cooperative. Well developed. Well nourished. NAD Head Exam: Normal inspection Neck Exam: Normal inspection. Non-tender. Normal alignment Pulmonary/Respiratory: Chest non-tender. Clear bilateral breath sounds, no crackles, no wheezing. Cardiovascular/Chest: Regular rate and rhythm. No murmurs. No JVD. Peripheral Pulses: 2+ Radial (R). 2+ Radial (L). 2+ Pedal (R). 2+ Pedal (L) Abdominal Exam: Normal bowel sounds. Soft. normal abdomen, no visible veins, nontender, negative Valdes sign. No hepatospenomegaly. No masses Ankle Exam: Negative ankle edema Lower extremities: Negative lower extremity edema Neuro/Mental Status: A&O x4. Coherent. Thoughts/Psych: Normal thought pattern. Appropriate mood and affect. Good judgement and insight Skin Exam: Normal inspection. Normal color. Warm. 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 Patient was counseled about treatment plan, medications, possible side effects, patientverbalized understanding. All questions were answered to the best of my ability. 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
--- NOTE | 2024-04-28 05:11 | ECG ---
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
[2024-04-29 10:16] LABS: Hepatitis A Ab IgM Negative; Hepatitis B Core IgM Negative (Negative); Hepatitis B Surface Antigen Negative (Negative); Hepatitis C Antibody Negative (Negative)
[2024-04-29 12:51] LABS: Hepatitis A Total Antibody Positive (Negative)
[2024-04-29 12:52] LABS: Hepatitis B Core Total AB Negative (Negative); Hepatitis B Surface Antibody Negative (Negative); Hepatitis B Surface Antigen Negative (Negative); Hepatitis C Antibody Negative (Negative)
== END 2024-04-27 12:20 | disposition home or self-care (01) | DRG 446 ==
LOC: ER 16:39 → OVERFLOW 21:46 → EAST 22:55
PROVIDERS: ADMIT Student in an Organized Health Care Education/Training Program; ATTEND Student in an Organized Health Care Education/Training Program
DX: K80.50 Calculus of bile duct without cholangitis or cholecystitis without obstruction (principal); K57.30 Diverticulosis of large intestine without perforation or abscess without bleeding; E78.5 Hyperlipidemia, unspecified; E03.9 Hypothyroidism, unspecified; E83.52 Hypercalcemia; Z90.710 Acquired absence of both cervix and uterus; Z80.8 Family history of malignant neoplasm of other organs or systems; Z88.0 Allergy status to penicillin; K75.81 Nonalcoholic steatohepatitis (NASH); K29.70 Gastritis, unspecified, without bleeding; E86.0 Dehydration
CPT/HCPCS: 36415; 71045; 74176; 76705; 78226; 80048; 80053; 80061; 80074; 80307; 80320; 81001; 83036; 83690; 84443; 85025; 85610; 85730; 86704; 86706; 86708; 86803; 87340; 93005; G0378; J2405; J2470; J3490